=== PATIENT | male | born 1965 | race Hispanic/Latino ===

== ENCOUNTER 2022-09-18 13:00 | Inpatient (IN) | payer OTHER ==
[~2022-09-18] VITALS: Ht 172.7 cm; Wt 98.6 kg
[2022-09-18 13:57] LABS: BASOPHILS % (AUTO) 0.4 % (0.0-5.0); EOSINOPHILS % (AUTO) 1.3 % (0.0-8.0); HEMATOCRIT 44.7 % (42-54); MEAN CORPUSCULAR HEMOGLOBIN 31.8 pg (27.0-33.0); MEAN CORPUSCULAR HGB CONC 34.7 g/dL (32.0-36.0); MEAN CORPUSCULAR VOLUME 91.8 fL (79-99); MONOCYTES % (AUTO) 7.8 % (3.0-13.0); NEUTROPHILS % (AUTO) 65.1 % (40.0-77.0); PLATELET COUNT (AUTO) 213 K/uL (130-400); RED BLOOD CELL COUNT(AUTO) 4.87 MIL/uL (4.50-6.20); RED CELL DISTRIBUTION WIDTH 13.7 % (11.0-15.5); WHITE BLOOD COUNT (AUTO) 6.9 K/uL (4.8-10.8)
[2022-09-18 14:18] LABS: POTASSIUM 4.2 mmol/L (3.5-5.1)
[2022-09-22 11:34] VITALS: BP 116/84
[2022-09-22] MEDS ORDERED: METF-444 PO (11:50)
[2022-09-22] MEDS ORDERED: ROSU40TA21 PO (11:50)
[2022-09-22] MEDS ORDERED: OMEP40CA21 PO (11:50)
[2022-09-22] MEDS ORDERED: LISI40TA9 PO (11:50)
[2022-09-23] VITALS (25 sets, daily range): BP systolic 113–177; BP diastolic 44–104
[2022-09-23] MEDS ORDERED: BUPIVACAINE/PF 0.5% 30ML VIAL ONE (06:50)
[2022-09-23] MEDS ORDERED: BUPIVACAINE/PF 0.25% 10ML VIAL IJ ONE (07:19)
[2022-09-23] MEDS ORDERED: 0.9%NACL 1000ML 1,000 ML IV ONE (07:49)
[2022-09-23] MEDS ORDERED: CEFAZOLIN SODIUM 2 GM VIAL ONE (07:50)
[2022-09-23] MEDS ORDERED: FAMOTIDINE 20MG VIAL IV ONE (10:00)
[2022-09-23] MEDS ORDERED: HYDROMORPHONE 1 MG INJ ONE (10:01)
[2022-09-23] MEDS ORDERED: CITRIC ACID/SODIUM CITRATE 30 ML UDCUP ONE (10:03)
[2022-09-23] MEDS ORDERED: LIDOCAINE PF 100MG/5ML (2%) SYRINGE 5ML ONE (10:07)
[2022-09-23] MEDS ORDERED: SUCCINYLCHOLINE 200MG/10ML SYR ONE (10:07)
[2022-09-23] MEDS ORDERED: PROPOFOL 10 MG/ML 20ML VIAL IV ONE (10:08)
[2022-09-23] MEDS ORDERED: GLYCOPYRROLATE 1 MG/5 ML SYRINGE ONE ×2 (10:08→15:12)
[2022-09-23] MEDS ORDERED: MIDAZOLAM HCL 1 MG/ML 2ML VIAL ONE (10:08)
[2022-09-23] MEDS ORDERED: ROCURONIUM 10MG/1ML SYR 10 MG/ML ML ONE ×2 (10:08→11:28)
[2022-09-23] MEDS ORDERED: ONDANSETRON 4MG INJ ONE ×2 (10:08→13:41)
[2022-09-23] MEDS ORDERED: FENTANYL CITRATE PF 50 MCG/1 ML 2ML VIAL ONE ×2 (10:08→11:29)
[2022-09-23] MEDS ORDERED: BUPIVACAINE/PF 0.25% 30ML VIAL IJ ONE (11:26)
[2022-09-23] MEDS ORDERED: NEOSTIGMINE 5MG/5ML SYR IV ONE (14:29)
[2022-09-23] MEDS ORDERED: PROCHLORPERAZINE 10MG/2ML INJ IV PRN (15:00)
[2022-09-23] MEDS ORDERED: ONDANSETRON 4MG INJ IVP PRN (15:00)
[2022-09-23] MEDS: 1/2NS+20MEQ KCL/1000ML 1,000 ML IV SCH ×2 (15:00→19:41)
[2022-09-23] MEDS ORDERED: ENOXAPARIN SODIUM 30 MG/0.3 ML SQ SCH (15:00)
[2022-09-23] MEDS ORDERED: MORPHINE 4 MG SYG IVP PRN (15:00)
[2022-09-23] MEDS ORDERED: HYDROCODONE/ACETAMINOPHEN 7.5/325 MG 15 ML UDCUP PO PRN (15:00)
[2022-09-23] MEDS ORDERED: LACTATED RINGERS 1000ML 1,000 ML IV ONE (18:08)
[2022-09-23] MEDS: KETOROLAC 30MG VIAL (30MG/ML) IV PRN (19:47)
[2022-09-23] MEDS ORDERED: PHARMACY COMMUNICATION MISC SCH (20:30)
[2022-09-24] VITALS: BP_SYST 138; BP_SYST 140; BP_DIAS 92; BP_DIAS 96
[2022-09-24] MEDS: 1/2NS+20MEQ KCL/1000ML 1,000 ML IV SCH ×2 (03:53→11:00)
[2022-09-24 04:00] VITALS: BP 119/87
[2022-09-24 07:30] VITALS: BP 143/95
[2022-09-24] MEDS ORDERED: DIATR MEGLU/DIATRIZOATE SODIUM 30 ML BOTTLE ONE (07:59)
[2022-09-24] MEDS ORDERED: METFORMIN HCL 500 MG TABLET PO SCH (08:00)
[2022-09-24] MEDS ORDERED: ENOXAPARIN SODIUM 30 MG/0.3 ML SQ SCH (09:00)
[2022-09-24] MEDS ORDERED: ATORVASTATIN 40 MG TABLET PO SCH (09:00)
[2022-09-24] MEDS ORDERED: PANTOPRAZOLE 40 MG TAB DR PO SCH (09:00)
[2022-09-24] MEDS ORDERED: LISINOPRIL 40 MG TABLET PO SCH (09:00)
[2022-09-24 11:00] VITALS: BP 114/81
[2022-09-24] MEDS: KETOROLAC 30MG VIAL (30MG/ML) IV PRN (16:45)
== END 2022-09-24 17:30 | disposition home or self-care (01) | DRG 328 ==
LOC: DAHIP 09-23 07:32 → EDSTATUS 09-23 13:00 → 4AH 09-23 16:00
PROVIDERS: ADMIT Surgery; ATTEND Surgery
PROC: 0BUT4JZ Supplement Diaphragm with Synthetic Substitute, Percutaneous Endoscopic Approach (ICD-10-PCS; principal; 2022-09-23 10:34)
PROC: 0D164ZA Bypass Stomach to Jejunum, Percutaneous Endoscopic Approach (ICD-10-PCS; 2022-09-23 10:34)
PROC: 0DJ08ZZ Inspection of Upper Intestinal Tract, Via Natural or Artificial Opening Endoscopic (ICD-10-PCS; 2022-09-23 10:34)
DX: K44.0 Diaphragmatic hernia with obstruction, without gangrene (principal); Z20.822 Contact with and (suspected) exposure to COVID-19; K21.9 Gastro-esophageal reflux disease without esophagitis; Z93.1 Gastrostomy status
CPT/HCPCS: 36415; 43235; 74240; 80048; 82948; 85025; 86850; 86900; 86901; 87426; 93005; G0378; J0330; J1170; J1650; J1885; J2001; J2250; J2405; J2704; J2710; J3010; J3480; J3490; J7030; J7120; Q9963

== ENCOUNTER 2024-03-15 06:53 | Day surgery (SDC) | payer OTHER ==
[2024-03-13 14:41] LABS: BASOPHILS # (AUTO) 0.06 K/uL (0.00-0.20); BASOPHILS % (AUTO) 0.6 % (0.0-5.0); EOSINOPHILS # (AUTO) 0.13 K/uL (0.00-0.70); EOSINOPHILS % (AUTO) 1.3 % (0.0-8.0); HEMATOCRIT 44.2 % (42-54); IMMATURE GRANULOCYTE ABSOLUTE 0.05 K/uL (0-1); LYMPHOCYTES # (AUTO) 1.8 K/uL (1.0-4.8); LYMPHOCYTES % (AUTO) 17.5 % (21.0-51.0); MEAN CORPUSCULAR HEMOGLOBIN 33.6 pg (27.0-33.0); MEAN CORPUSCULAR HGB CONC 34.6 g/dL (32.0-36.0); MEAN CORPUSCULAR VOLUME 96.9 fL (79-99); MONOCYTES # (AUTO) 0.7 K/uL (0.1-1.0); MONOCYTES % (AUTO) 6.8 % (3.0-13.0); NEUTROPHILS # (AUTO) 7.4 K/uL (1.8-7.7); NEUTROPHILS % (AUTO) 73.3 % (40.0-77.0); PLATELET COUNT (AUTO) 173 K/uL (130-400); RED BLOOD CELL COUNT(AUTO) 4.56 MIL/uL (4.50-6.20); RED CELL DISTRIBUTION WIDTH 12.4 % (11.0-15.5)
[2024-03-13 14:47] LABS: CREATININE 0.9 mg/dL (0.5-1.3); POTASSIUM 4.6 mmol/L (3.5-5.1)
[2024-03-13 14:55] VITALS: BP 108/79; PULSE 48; RESP 16
[~2024-03-15] VITALS: Ht 172.7 cm; Wt 85.1 kg
[2024-03-15] VITALS (18 sets, daily range): BP systolic 110–159; BP diastolic 63–84; PULSE 58–79; RESP 13–19
[~2024-03-15 06:53] MED LIST: FAMO20TA8 PO; LISI40TA9 PO; METF-444 PO; ONDA-245 PO; PANT40TA54 PO; ROSU40TA70 PO
[2024-03-15] MEDS ORDERED: MIDAZOLAM HCL 1 MG/ML 2ML VIAL ONE (07:41)
[2024-03-15] MEDS: CEFAZOLIN SODIUM 2 GM VIAL ONE (07:42)
[2024-03-15] MEDS: 0.9%NACL 1000ML 1,000 ML IV ONE (07:42)
[2024-03-15] MEDS ORDERED: FENTANYL CITRATE PF 50 MCG/1 ML 2ML VIAL ONE (07:42)
[2024-03-15] MEDS ORDERED: PROPOFOL 10 MG/ML 20ML VIAL IV ONE ×2 (07:42→09:31)
[2024-03-15] MEDS ORDERED: ROCURONIUM BROMIDE 10MG/1ML 5ML VL ONE (07:42)
[2024-03-15] MEDS ORDERED: LIDOCAINE PF 100MG/5ML (2%) SYRINGE 5ML ONE (07:42)
[2024-03-15] MEDS ORDERED: ACETAMINOPHEN 1,000 MG/100 ML VIAL IV ONE (07:44)
[2024-03-15] MEDS ORDERED: IOHEXOL-350 50ML VIAL IV ONE (07:45)
[2024-03-15] MEDS ORDERED: MORPHINE 4 MG SYG ONE (07:46)
[2024-03-15] MEDS ORDERED: SUCCINYLCHOLINE CHLORIDE 20 MG/ML 10 ML VIAL ONE (08:34)
[2024-03-15] MEDS ORDERED: ONDANSETRON 4MG INJ ONE (08:44)
[2024-03-15] MEDS ORDERED: DEXAMETHASONE SOD PHOSPHATE 4 MG/ML 1ML VIAL ONE (08:44)
[2024-03-15] MEDS ORDERED: PHENYLEPHRINE HCL 10 MG/ML 1ML VIAL IV ONE (08:48)
[2024-03-15] MEDS ORDERED: GLYCOPYRROLATE 0.2 MG/ML 5 ML VIAL ONE (08:50)
[2024-03-15] MEDS ORDERED: NEOSTIGMINE METHYLSULFATE 1MG/ML IV ONE (08:51)
[2024-03-15] MEDS ORDERED: EPHEDRINE SULFATE 50 MG/ML AMPULE ONE (08:53)
[2024-03-15] MEDS: BUPIVACAINE/PF 0.25% 30ML VIAL IJ ONE (09:07)
[2024-03-15] MEDS: MEPERIDINE-PF 25 MG/ML SYG ONE ×2 (10:11→10:22)
== END 2024-03-15 11:48 | disposition home or self-care (01) ==
LOC: DAH 06:53
PROVIDERS: ATTEND Surgery
DX: K80.10 Calculus of gallbladder with chronic cholecystitis without obstruction (principal); I10 Essential (primary) hypertension; E78.5 Hyperlipidemia, unspecified; I25.10 Atherosclerotic heart disease of native coronary artery without angina pectoris; B96.81 Helicobacter pylori [H. pylori] as the cause of diseases classified elsewhere; K29.50 Unspecified chronic gastritis without bleeding; R13.10 Dysphagia, unspecified; R10.11 Right upper quadrant pain; E78.2 Mixed hyperlipidemia; E11.9 Type 2 diabetes mellitus without complications; K44.9 Diaphragmatic hernia without obstruction or gangrene; Z79.01 Long term (current) use of anticoagulants; Z79.899 Other long term (current) drug therapy; Z79.84 Long term (current) use of oral hypoglycemic drugs
CPT/HCPCS: 80048; 85025; 86850 ×2; 86900 ×2; 86901 ×2; 36415 ×2; 93005; 47563; 82948 ×2; 74300; A6260; J1100; A4600; A4663; J7030 ×2; A4215 ×2; C1758; J3010; J0330; J0665; J3490 ×3; J2001; J2250; J2704 ×2; J2405; J2270; J2710; J2175 ×2; J2371; Q9967; J0690; C1769 ×3; G0168; A4649 ×2; A4223; A4222; A4221

== ENCOUNTER 2024-07-13 09:52 | Day surgery (SDC) | payer OTHER ==
[~2024-07-13] VITALS: Ht 172.7 cm; Wt 81.6 kg
[2024-07-13] VITALS (9 sets, daily range): BP systolic 93–118; BP diastolic 54–79; PULSE 49–64; RESP 14–18; TEMP 97.3–97.9
[~2024-07-13 09:52] MED LIST changes: -ROSU40TA70 PO; +ROSU40TA88 PO
[2024-07-13] MEDS ORDERED: OMEP40CA21 PO (10:39)
[2024-07-13] MEDS: 0.9%NACL 1000ML 1,000 ML IV ONE (10:53)
[2024-07-13] MEDS ORDERED: proPOFol 10 MG/ML 20ML VIAL IV ONE (13:20)
[2024-07-13] MEDS ORDERED: LIDOCAINE HCL 400MG/20ML VIAL ONE (13:21)
== END 2024-07-13 14:35 | disposition home or self-care (01) ==
LOC: ENDO 09:52 → DAH 09:59 → ENDO 14:35
PROVIDERS: ATTEND Surgery
DX: K30 Functional dyspepsia (principal); K29.50 Unspecified chronic gastritis without bleeding; K44.9 Diaphragmatic hernia without obstruction or gangrene; I10 Essential (primary) hypertension; K21.9 Gastro-esophageal reflux disease without esophagitis; R13.10 Dysphagia, unspecified; K59.00 Constipation, unspecified; E78.2 Mixed hyperlipidemia; B96.81 Helicobacter pylori [H. pylori] as the cause of diseases classified elsewhere; E66.01 Morbid (severe) obesity due to excess calories; K31.89 Other diseases of stomach and duodenum; K22.89 Other specified disease of esophagus; F17.210 Nicotine dependence, cigarettes, uncomplicated; E11.9 Type 2 diabetes mellitus without complications; Z88.8 Allergy status to other drugs, medicaments and biological substances; I25.10 Atherosclerotic heart disease of native coronary artery without angina pectoris; Z98.1 Arthrodesis status; Z90.49 Acquired absence of other specified parts of digestive tract; Z98.890 Other specified postprocedural states; Z79.899 Other long term (current) drug therapy
CPT/HCPCS: 43239; 82948 ×2; J3490; J7030; J2704; A4620; A4215 ×2; A4223; A4657; A4222; A4221; A4663; A4606